=== PATIENT | female | born 1990 | race African-American/Black ===

== ENCOUNTER 2017-10-12 10:59 | Outpatient (CLI) | payer OTHER ==
[~2017-10-12] VITALS: Ht 162.6 cm; Wt 104.3 kg
[2017-10-12 11:14] VITALS: BP 100/59
[2017-10-12] MEDS ORDERED: PRENATAL TABLE1 EAC3 PO (11:22)
[2017-10-12] MEDS ORDERED: ANTIVERT25 MG PO (13:33)
[2017-10-12 13:37] LABS: AMPHETAMINE NEGATIVE (500 ng/mL); BARBITURATES NEGATIVE (200 ng/mL); BENZODIAZEPINES NEGATIVE (150 ng/mL); BUPRENORPHINE NEGATIVE (10 ng/mL); COCAINE NEGATIVE (150 ng/mL); METHADONE NEGATIVE (200 ng/mL); METHAMPHETAMINE NEGATIVE (500 ng/mL); OPIATES (MORPHINE) NEGATIVE (100 ng/mL); OXYCODONE NEGATIVE (100 ng/mL); PHENCYCLIDINE NEGATIVE (25 ng/mL); PROPOXYPHENE NEGATIVE (300 ng/mL); THC CANNABINOIDS PRESUMPTIVE POSITIVE (50 ng/mL); TRICYCLIC ANTIDEPRESSANTS NEGATIVE (300 ng/mL)
== END 2017-10-12 13:47 | disposition home or self-care (01) ==
LOC: LDRP-OP 10:59 → 2WEST 11:00
PROVIDERS: Obstetrics & Gynecology
DX: O99.513 Diseases of the respiratory system complicating pregnancy, third trimester (principal); J06.9 Acute upper respiratory infection, unspecified; O99.323 Drug use complicating pregnancy, third trimester; F12.90 Cannabis use, unspecified, uncomplicated; O99.213 Obesity complicating pregnancy, third trimester; E66.9 Obesity, unspecified; Z87.891 Personal history of nicotine dependence; O34.219 Maternal care for unspecified type scar from previous cesarean delivery; Z3A.29 29 weeks gestation of pregnancy
CPT/HCPCS: 59025; 84999; 87651 90; G0378

== ENCOUNTER 2017-10-16 09:31 | Outpatient (CLI) | payer OTHER ==
[~2017-10-16] VITALS: Ht 165.1 cm; Wt 102.3 kg
[~2017-10-16 09:31] MED LIST: ANTIVERT25 MG PO; PRENATAL TABLE1 EAC3 PO
[2017-10-16 10:35] LABS: BASOPHIL (%) 0.2 % (0-1); EOSINOPHIL (%) 1.9 % (0-5); EOSINOPHIL COUNT 0.1 K/uL (0-0.3); HEMATOCRIT 32.6 % (36.0-46.0); HEMOGLOBIN 11.6 G/DL (11.9-15.5); IMMATURE GRANULOCYTE (%) 0.6 % (0.0-0.7); LYMPHOCYTE (%) 17.4 % (15-42); LYMPHOCYTE COUNT 0.9 K/uL (1.0-2.8); MCH 32.4 PG (29.0-34.0); MCHC 35.6 G/DL (30.0-36.0); MCV 91.1 FL (83-99); MONOCYTE (%) 7.7 % (3-12); MONOCYTE COUNT 0.4 K/uL (0-0.8); NEUTROPHIL (%) 72.2 % (45-76); NEUTROPHIL COUNT 3.9 K/uL (1.8-6.4); PLATELET COUNT 139 K/uL (156-360); RBC DIS.WIDTH-CV 13.7 % (11.8-14.6); RBC DIS.WIDTH-SD 45.3 % (39-53); RED BLOOD COUNT 3.58 M/uL (3.80-5.20); WHITE BLOOD COUNT 5.3 K/uL (4.1-10.2)
[2017-10-16 10:39] LABS: APPEARANCE SL.HAZY ((CLEAR)); BILIRUBIN NEGATIVE; BLOOD NEGATIVE; COLOR YELLOW ((YELLOW)); GLUCOSE (STRIP) NEGATIVE; KETONES NEGATIVE; LEUKOCYTES NEGATIVE; NITRITE NEGATIVE; PROTEIN (STRIP) 100; SPECIFIC GRAVITY 1.019 (1.000-1.030); UROBILINOGEN 0.2 MG/DL (0.2-1.0)
[2017-10-16 10:40] LABS: ALBUMIN 3.7 g/dL (3.2-4.8); CHLORIDE 110 mEq/L (99-109); SODIUM 138 mEq/L (136-147)
[2017-10-16 10:42] LABS: GLUCOSE 87 mg/dL (70-99)
[2017-10-16 10:44] LABS: TOTAL BILIRUBIN 0.6 mg/dL (0.0-1.0)
[2017-10-16 10:45] LABS: ALKALINE PHOSPHATASE 62 IU/L (3-129)
[2017-10-16 10:46] LABS: CREATININE 0.6 mg/dL (0.6-1.3); GFR ESTIMATE (CALCULATED) > 59 mL/min/
[2017-10-16 10:47] LABS: AST (GOT) 21 IU/L (2-34); UREA NITROGEN (BUN) 7 mg/dL (9-23)
[2017-10-16 10:49] LABS: AMPHETAMINE NEGATIVE (500 ng/mL); BACTERIA RARE /HPF; BARBITURATES NEGATIVE (200 ng/mL); BENZODIAZEPINES NEGATIVE (150 ng/mL); BUPRENORPHINE NEGATIVE (10 ng/mL); CALCIUM OXALATE CRYSTALS 1+ /HPF; COCAINE NEGATIVE (150 ng/mL); EPITHELIAL CELLS 2+ /HPF; METHADONE NEGATIVE (200 ng/mL); METHAMPHETAMINE NEGATIVE (500 ng/mL); MUCUS 4+ /LPF; OPIATES (MORPHINE) NEGATIVE (100 ng/mL); OXYCODONE NEGATIVE (100 ng/mL); PHENCYCLIDINE NEGATIVE (25 ng/mL); PROPOXYPHENE NEGATIVE (300 ng/mL); RED BLOOD CELLS 0-5 /HPF (0-5); THC CANNABINOIDS PRESUMPTIVE POSITIVE (50 ng/mL); TRICYCLIC ANTIDEPRESSANTS NEGATIVE (300 ng/mL)
[2017-10-16 10:49] LABS: ALT (GPT) 9 IU/L (3-49)
[2017-10-16 11:17] VITALS: BP 128/78
[2017-10-16 13:06] LABS: INTER. NORMALIZED RATIO 1.1
[2017-10-16 13:08] LABS: FIBRINOGEN 350 mg/dL (150-450)
[2017-10-16 13:09] LABS: PTT 25.7 SEC (25-37)
[2017-10-16 13:11] LABS: HEPATITIS B SURFACE ANTIGEN Nonreactive; HEPATITIS C ANTIBODY Nonreactive
[2017-10-16 13:12] LABS: ANTI-HEPATITIS A VIRUS (IGM) Nonreactive
[2017-10-16 13:13] LABS: HIV-1/2 AB/AG COMBO Nonreactive
[2017-10-16 13:17] LABS: ANTI-HEPATITIS B CORE (IGM) REACTIVE
[2017-10-16 13:42] VITALS: BP 141/64
[2017-10-16 16:01] LABS: SOURCE URINE
[2017-10-16 16:16] VITALS: BP 110/60
[2017-10-16 17:34] VITALS: BP 119/68
[2017-10-16 18:44] VITALS: BP 109/67
[2017-10-16 19:02] LABS: CANDIDA DNA PROBE NEGATIVE; GARDNERELLA DNA PROBE POSITIVE; TRICHOMONAS DNA PROBE NEGATIVE
[2017-10-16] MEDS ORDERED: FLAGYL500 MG PO (19:52)
[2017-10-17 08:56] LABS: TREPONEMA ANTIBODY NEGATIVE (NEGATIVE)
[2017-10-19 12:41] LABS: CHLAMYDIA TRACHOMATIS NEGATIVE; NEISSERIA GONORRHOEAE NEGATIVE
== END 2017-10-16 20:45 | disposition home or self-care (01) ==
LOC: EME 09:31 → EDSTATUS 10:52 → 2WEST 11:00
PROVIDERS: Nurse Practitioner Family; Obstetrics & Gynecology
DX: O9A.213 Injury, poisoning and certain other consequences of external causes complicating pregnancy, third trimester (principal); O98.413 Viral hepatitis complicating pregnancy, third trimester; O99.343 Other mental disorders complicating pregnancy, third trimester; B19.10 Unspecified viral hepatitis B without hepatic coma; Z3A.29 29 weeks gestation of pregnancy; O46.93 Antepartum hemorrhage, unspecified, third trimester; Y08.89XA Assault by other specified means, initial encounter; W01.0XXA Fall on same level from slipping, tripping and stumbling without subsequent striking against object, initial encounter; F31.9 Bipolar disorder, unspecified; F63.81 Intermittent explosive disorder; F43.25 Adjustment disorder with mixed disturbance of emotions and conduct
CPT/HCPCS: 59025; 76805; 80053; 80074; 81003; 84999; 85025; 85384; 85610; 85730; 86780; 86850; 86900; 86901; 87086; 87389; 87480; 87491; 87510; 87517 90; 87591; 87660; 99281; 99284; G0378